=== PATIENT | female | born 1975 | race Caucasian/White ===

== ENCOUNTER 2023-08-15 09:41 | Inpatient (IN) | payer OTHER ==
[~2023-08-15] VITALS: Ht 162.6 cm; Wt 86.2 kg
[2023-08-15 09:46] VITALS: BP 112/68; PULSE 86; RESP 16; TEMP 97.2; O2SAT 98
[2023-08-15 10:35] LABS: APPEARANCE,URINE CLEAR (CLEAR); BILIRUBIN,URINE NEGATIVE (NEGATIVE); BLOOD, URINE TRACE-I (NEGATIVE); COLOR,URINE YELLOW (YELLOW); LEUKOCYTE ESTERASE ,URINE NEGATIVE (NEGATIVE); NITRITE, URINE NEGATIVE (NEGATIVE); PROTEIN,URINE NEGATIVE (NEGATIVE); UGLUCOSE NEGATIVE (NEGATIVE); UROBILINOGEN,URINE 0.2 EU/dL (0.2 - 1)
[2023-08-15 11:06] LABS: BACTERIA,URINE FEW /HPF (None Seen); RBC,URINE 0-5 /HPF (0-5); SQUAMOUS EPITHELIAL CELL,UR 4-10 (MOD) /LPF (0-3 (FEW)); WBC,URINE 0-5 /HPF (0-5)
[2023-08-15 11:07] LABS: BASOPHILS # (AUTO) 0.1 K/uL (0.00-0.22); BASOPHILS % (AUTO) 1.5 % (0.0-2.0); EOSINOPHILS # (AUTO) 0.4 K/uL (0-0.4); EOSINOPHILS % (AUTO) 4.2 % (0.0-4.0); HEMATOCRIT 34.4 % (36-48); HEMOGLOBIN 11.6 g/dL (12.0-16.0); LYMPHOCYTES % (AUTO) 34.8 % (20.5-51.1); MEAN CORPUSCULAR HEMOGLOBIN 29 pg (27-31); MEAN CORPUSCULAR HGB CONC 34 g/dL (33-37); MEAN CORPUSCULAR VOLUME 85.7 fL (80-94); MONOCYTES # (AUTO) 0.7 K/uL (0.8-1.0); MONOCYTES % (AUTO) 7.8 % (1.7-9.3); NEUTROPHILS # (AUTO) 4.5 K/uL (1.8-7.7); NEUTROPHILS % (AUTO) 51.7 % (42.2-75.2); PLATELET COUNT (AUTO) 380 K/uL (140-450); RED BLOOD CELL COUNT(AUTO) 4.01 MIL/uL (4.20-5.40); RED CELL DISTRIBUTION WIDTH 14.3 % (11.6-13.7); WHITE BLOOD COUNT (AUTO) 8.8 K/uL (4.8-10.8)
[2023-08-15 11:27] LABS: ALBUMIN 3.4 g/dL (3.4-5.0); TOTAL BILIRUBIN 0.1 mg/dL (0.0-1.0); TOTAL PROTEIN, SERUM 8.7 g/dL (6.4-8.2)
[2023-08-15 11:30] LABS: ANION GAP 13.2 (8-16); CALCIUM 8.6 mg/dL (8.5-10.1); CARBON DIOXIDE 25.8 mmol/L (21-32); CREATININE 0.6 mg/dL (0.6-1.3)
[2023-08-15] MEDS: KETOROLAC 30 MG/ML VIAL IVP ONE (13:17)
[2023-08-15] MEDS ORDERED: cefTRIAXone 1,000 MG VIAL ONE (13:30)
[2023-08-15] MEDS: ACETAMINOPHEN EXTRA STRENGTH 500 MG TAB PO ONE (13:36)
[2023-08-15] MEDS ORDERED: LORazepam 2 MG/ML VIAL IVP PRN (14:35)
[2023-08-15] MEDS ORDERED: ACETAMINOPHEN 325 MG TAB PO PRN (14:35)
[2023-08-15] MEDS ORDERED: SEMA0.253 SQ (15:03)
[2023-08-15] MEDS: NACL 0.9% 1,000 ML IV SCH ×2 (15:15→16:54)
[2023-08-15] MEDS: ONDANSETRON 4 MG/2 ML VIAL IVP PRN (15:16)
[2023-08-15] MEDS: HYDROcodone/APAP 5/325 MG 1 TAB TAB PO PRN (15:20)
[2023-08-15 15:58] LABS: INR 1.11 (0.8-1.2); PARTIAL THROMBOPLASTIN TIME 27.3 secs (22-35.6); PROTHROMBIN TIME 11.5 secs (10.8-13.4)
[2023-08-15] MEDS: PROPOFOL 200 MG/20 ML VIAL IV ONE ×2 (18:06)
[2023-08-15] MEDS: SUCCINYLCHOLINE CHLORIDE 200 MG/10 ML VIAL IVP ONE (18:07)
[2023-08-15] MEDS: ROCURONIUM 50 MG/5 ML VIAL IV ONE (18:07)
[2023-08-15] MEDS: MIDAZOLAM 2 MG/2 ML VIAL ONE (18:10)
[2023-08-15] MEDS: fentaNYL citrate 0.05 MG/ML VIAL ONE ×2 (18:10→18:41)
[2023-08-15] MEDS ORDERED: SEVOFLURANE 250 ML BTL INH ONE (18:18)
[2023-08-15] MEDS: BUPIVACAINE-MPF 0.25% 30 ML VIAL INJ ONE (18:18)
[2023-08-15] MEDS: GLYCOPYRROLATE 0.2 MG/ML VIAL ONE ×3 (18:54)
[2023-08-15] MEDS: NEOSTIGMINE 1:1000 10 MG/10 ML VIAL ONE ×2 (18:55)
[2023-08-15] MEDS: ONDANSETRON 4 MG/2 ML VIAL ONE (19:13)
[2023-08-15] MEDS ORDERED: ACETAMINOPHEN 100 ML IV ONE (19:40)
[2023-08-15] MEDS ORDERED: ONDANSETRON 4 MG/2 ML VIAL IVP PRN (19:40)
[2023-08-15] MEDS ORDERED: MEPERIDINE 25 MG/ML SYR IVP PRN (19:40)
[2023-08-15] MEDS: HYDROmorphone 1 MG/ML AMP IVP PRN (19:44)
[2023-08-15] MEDS: HYDROmorphone PFS 2 MG/ML SYR ONE (20:00)
[2023-08-15] MEDS: MEPERIDINE 25 MG/ML SYR ONE (20:06)
[2023-08-15 20:50] VITALS: BP 115/57; PULSE 71; RESP 18; TEMP 96.9; O2SAT 95
[2023-08-15] MEDS: PIPERACILLIN/TAZOBACTAM 3.375 GM in DEXTROSE 5% 50 ML IV SCH (22:35)
[2023-08-15] MEDS: PIPERACILLIN/TAZOBACTAM 3.375 GM VIAL IV ONE (22:35)
[2023-08-16] MEDS: MORPHINE SULFATE 2 MG/ML SYR IVP PRN (00:33)
[2023-08-16 04:00] VITALS: BP 124/75; PULSE 81; RESP 18; TEMP 97.7; O2SAT 96
[2023-08-16] MEDS: PIPERACILLIN/TAZOBACTAM 3.375 GM VIAL IV ONE (05:29)
[2023-08-16 06:32] LABS: BASOPHILS # (AUTO) 0.1 K/uL (0.00-0.22); BASOPHILS % (AUTO) 0.6 % (0.0-2.0); EOSINOPHILS % (AUTO) 0.1 % (0.0-4.0); HEMATOCRIT 30.8 % (36-48); HEMOGLOBIN 10.3 g/dL (12.0-16.0); LYMPHOCYTES # (AUTO) 1.7 K/uL (2.5-16.5); LYMPHOCYTES % (AUTO) 13.9 % (20.5-51.1); MEAN CORPUSCULAR HEMOGLOBIN 29 pg (27-31); MEAN CORPUSCULAR HGB CONC 34 g/dL (33-37); MEAN CORPUSCULAR VOLUME 85.5 fL (80-94); MONOCYTES # (AUTO) 0.6 K/uL (0.8-1.0); NEUTROPHILS # (AUTO) 9.6 K/uL (1.8-7.7); NEUTROPHILS % (AUTO) 80.4 % (42.2-75.2); PLATELET COUNT (AUTO) 351 K/uL (140-450); RED CELL DISTRIBUTION WIDTH 13.9 % (11.6-13.7); WHITE BLOOD COUNT (AUTO) 11.9 K/uL (4.8-10.8)
[2023-08-16 06:53] LABS: ALBUMIN 2.9 g/dL (3.4-5.0); ANION GAP 12.2 (8-16); CALCIUM 7.7 mg/dL (8.5-10.1); CARBON DIOXIDE 25.5 mmol/L (21-32); CREATININE 0.5 mg/dL (0.6-1.3); MAGNESIUM 1.6 mg/dL (1.8-2.4); POTASSIUM 3.7 mmol/L (3.5-5.1); TOTAL BILIRUBIN 0.3 mg/dL (0.0-1.0); TOTAL PROTEIN, SERUM 7.8 g/dL (6.4-8.2)
[2023-08-16 08:00] VITALS: BP 117/68; PULSE 76; RESP 20; TEMP 98.3; O2SAT 96; O2SAT 99
[2023-08-16] MEDS ORDERED: ENOXAPARIN 40 MG/0.4 ML SYR SUBQ SCH (09:00)
[2023-08-16] MEDS: MAGNESIUM OXIDE 400 MG TAB PO SCH (15:58)
[2023-08-16 16:00] VITALS: BP 122/68; PULSE 75; RESP 20; TEMP 98.2; O2SAT 98
[2023-08-16 19:35] LABS: BASOPHILS # (AUTO) 0.1 K/uL (0.00-0.22); EOSINOPHILS # (AUTO) 0.1 K/uL (0-0.4); EOSINOPHILS % (AUTO) 1.3 % (0.0-4.0); HEMATOCRIT 30.8 % (36-48); HEMOGLOBIN 10.6 g/dL (12.0-16.0); LYMPHOCYTES # (AUTO) 3.3 K/uL (2.5-16.5); LYMPHOCYTES % (AUTO) 33.9 % (20.5-51.1); MEAN CORPUSCULAR HEMOGLOBIN 29 pg (27-31); MEAN CORPUSCULAR HGB CONC 34 g/dL (33-37); MEAN CORPUSCULAR VOLUME 84.7 fL (80-94); MONOCYTES % (AUTO) 9.9 % (1.7-9.3); NEUTROPHILS # (AUTO) 5.3 K/uL (1.8-7.7); NEUTROPHILS % (AUTO) 53.9 % (42.2-75.2); PLATELET COUNT (AUTO) 349 K/uL (140-450); RED BLOOD CELL COUNT(AUTO) 3.64 MIL/uL (4.20-5.40); RED CELL DISTRIBUTION WIDTH 14.4 % (11.6-13.7); WHITE BLOOD COUNT (AUTO) 9.7 K/uL (4.8-10.8)
[2023-08-16 20:00] VITALS: RESP 18; O2SAT 96
[2023-08-16] MEDS: MEDS-TO-BEDS MC SCH (21:36)
[2023-08-17 06:57] LABS: BASOPHILS % (AUTO) 0.5 % (0.0-2.0); EOSINOPHILS # (AUTO) 0.3 K/uL (0-0.4); HEMATOCRIT 29.9 % (36-48); HEMOGLOBIN 10.2 g/dL (12.0-16.0); LYMPHOCYTES # (AUTO) 3.8 K/uL (2.5-16.5); LYMPHOCYTES % (AUTO) 44.9 % (20.5-51.1); MEAN CORPUSCULAR HEMOGLOBIN 29 pg (27-31); MEAN CORPUSCULAR HGB CONC 34 g/dL (33-37); MEAN CORPUSCULAR VOLUME 85.5 fL (80-94); MONOCYTES # (AUTO) 0.7 K/uL (0.8-1.0); MONOCYTES % (AUTO) 8.7 % (1.7-9.3); NEUTROPHILS # (AUTO) 3.6 K/uL (1.8-7.7); NEUTROPHILS % (AUTO) 42.9 % (42.2-75.2); PLATELET COUNT (AUTO) 344 K/uL (140-450); RED CELL DISTRIBUTION WIDTH 13.9 % (11.6-13.7); WHITE BLOOD COUNT (AUTO) 8.5 K/uL (4.8-10.8)
[2023-08-17 07:17] LABS: ANION GAP 11.1 (8-16); CALCIUM 7.8 mg/dL (8.5-10.1); CARBON DIOXIDE 26.2 mmol/L (21-32); CREATININE 0.6 mg/dL (0.6-1.3); POTASSIUM 3.3 mmol/L (3.5-5.1)
[2023-08-17 08:00] VITALS: BP 116/66; PULSE 74; RESP 18; RESP 20; TEMP 98.2; O2SAT 96; O2SAT 97
[2023-08-17] MEDS ORDERED: FOAM DRESSING TP SCH (13:00)
[2023-08-17] MEDS ORDERED: THERAHONEY GEL 42.5 GM TP SCH (13:00)
[2023-08-17] MEDS: POTASSIUM CHLORIDE 10 MEQ TABER PO SCH (14:50)
[2023-08-17 16:00] VITALS: BP 106/62; PULSE 73; RESP 18; TEMP 98; O2SAT 99
[2023-08-17] MEDS ORDERED: ACET-9525 PO (16:43)
[2023-08-17] MEDS ORDERED: ONDA-188 SL (16:43)
== END 2023-08-17 17:44 | disposition home or self-care (01) | DRG 263 ==
LOC: MED 09:41 → MMU 14:35 → MTU 17:07
PROVIDERS: ADMIT Hospitalist; ATTEND Hospitalist
PROC: 0FT44ZZ Resection of Gallbladder, Percutaneous Endoscopic Approach (ICD-10-PCS; principal; 2023-08-15 17:45)
DX: K80.00 Calculus of gallbladder with acute cholecystitis without obstruction (principal); R71.0 Precipitous drop in hematocrit; E66.9 Obesity, unspecified; R73.03 Prediabetes; Z68.32 Body mass index [BMI] 32.0-32.9, adult; Z88.5 Allergy status to narcotic agent
CPT/HCPCS: 36415; 76705; 80048; 80053; 80076; 81001; 83690; 83735; 85025; 85610; 85730; 87081; 88304; 96365; 96375; 99285; J0330; J0696; J1170; J1885; J2175; J2250; J2270; J2405; J2543; J2704; J2710; J3010; J3490; J7030; J7060; J7120; Q0092